=== PATIENT | female | born 1975 | race Caucasian/White ===

== ENCOUNTER 2016-12-19 16:48 | Emergency (ER) | payer MEDICARE, MEDICAID ==
[~2016-12-19] VITALS: Ht 165.1 cm; Wt 83.9 kg
[~2016-12-19 16:48] MED LIST: ADEPEX PO; ALBUTEROL-200 PUFFS/ IH; AMITRIPTYLINE25 MG PO; AUGMENTIN 500 M1 TAB PO; BACTRIM 400 MG-1 TAB PO; BACTRIM DS 8001 TA1 PO; BACTROBAN2% TP; BENTYL10 MG PO; CIPRO 500MG TA500 MG PO; CIPRO500 MG PO; CYMBALTA30 M1 PO; DARVOCET-N 1001 EACH PO; FIORICET 325 MG1 TAB PO; FLEXERIL10 MG PO; FLUID PILL; GABAPENTIN300 M1 PO; KEFLEX 500MG.500 MG PO; LEVAQUIN 750 M750 MG PO; LODINE200 MG PO; LORTAB 5/500 501 TAB PO; LOVASTATIN20 MG PO; MEDROL 4MG. DOSE4 MG PO; MINOCYCLINE 10100 MG PO; MOBIC15 MG PO; MOBIC7.5 MG PO; MOTRIN600 MG PO; NAPROSYN 500MG500 MG PO; NICOTINE PATCH;21 MG TD; NORCO 325 MG-101 TAB PO; NORCO 325 MG-51 TAB PO; PERCOCET 10 MG1 EACH PO; PERCOCET 5/3251 EACH PO; PHENERGAN 12.12.5 M1 PO; PHENERGAN 25MG.25 M1 PO; PROMETHAZINE D473 ML PO; SEPTRA DS 800 M1 TAB PO; SINUS HEADACHE PO; SOMA350 MG PO; STADOL IN; SULFAMETHOXAZOL1 TA6 PO; TESSALON PERLE200 MG PO; VICODIN 5/500 T1 TAB PO; VICODIN 7.5/501 EACH PO; VOLTAREN75 MG PO; XANAX 1MG TABLET1 MG PO; XANAX2 MG PO; ZANAFLEX2 M1 PO; ZITHROMAX 250M250 MG PO; ZOFRAN ODT4 MG PO; [UNRECOGNIZED DRUG - REMARK]
[2016-12-19 17:41] LABS: URINE BILIRUBIN - DIPSTICK NEGATIVE (NEG)
[2016-12-19 17:42] LABS: URINE BLOOD 1+ (NEG)
[2016-12-19] MEDS ORDERED: BACTRIM DS 8001 TA1 PO (17:52)
--- NOTE | 2016-12-19 17:52 | [facility]gent Treatment Center Report ---
History of Present Issue Date/Time Seen by Provider 12/19/16 5851 Visit Reason Pt arrived:Walked Presenting Problem:PT C/O DIZZINESS, DECREASED APPETITE, AND "KNOWS THAT I HAVE A UTI. CHAD HAD ENOUGH OF THEM THAT I KNOW". PT ALSO C/O FLANK PAIN AND PAIN WITH URINATION Location if Accident: Onset of symptoms date/time:/ or onset unknown for:MEDICAL HX UNKNOWN Have you (or family members/close friends) recently traveled outside the [place]? N If Yes, where/when: Have you had exposure to infectious disease within the past month? TB? Other? Specify: Patient states that she has a history of recurrent UTIs states that she has not been feeling well or eating well and having pain and burning with urination, states that she is familar with this pain so she took some levaquin last week that she had left over and it did not help so she came here ALLERGIES Coded Allergies: paroxetine (Severe, S-DIFF. BREATHING 10/24/16) codeine (Intermediate, I-ITCHING 10/24/16) ketorolac (Intermediate, I-HIVES 10/24/16) latex (Intermediate, I-HIVES 10/24/16) phenytoin (Severe, NA-HALLUCINATIONS 10/24/16) Corticosteroids (Glucocorticoids) (Mild, TACHYCARDIA 10/24/16) Home Medications Active Scripts Minocycline Hcl (Minocycline 100MG. Capsule) 100 MG PO BID #14 CAP Prov: 11/07/16 MUPIROCIN 2% (Bactroban Oint) 1 RAYMON TP BID #1 TUBE Prov: 11/07/16 Methylprednisolone (Medrol Dose Isaiah) 4 MG PO UD #1 ISAIAH Prov: 10/31/16 Albuterol (Albuterol-Hfa Inhaler) 1 PUFF IH QIDP PRN DYSPNEA #1 INH Ref 2 Prov: 10/31/16 TIZANIDINE HCL (Zanaflex) 2 MG PO TID PRN spasm #90 CAP Prov: 09/28/15 History Medical History General CAD? No Angina: No MS: No Hypertension? No Hyperlipidemia? Yes CHF? No DVT? No PE? No COPD? No Asthma? No Anemia? No GERD? No Gastric ulcers? No GI Bleed? No Hernia? No Thyroid Problems? No Hypothyroidism? No CVA? No Seizures? Yes Diabetes? No Renal Insuffiency? No UTI? No Stones? No BPH? No GB Disease: No Nephritic Syndrome? No Asplenia? No Hepatitis? No Sickle Cell Disease? No Arthritis? Yes Migraines? No Cataracts? No Glaucoma? No MRSA? No HIV? No TB? No Anxiety? Yes Depression? No Cancer? No More? Yes Additional hx: FIBROMYALGIA Immunization HX DT/Tetanus < 1 Year Ago Flu NEVER Pneumonia NEVER Surgical Hx Previous Surgery?Y C SECTION X TWO JENNIFER KNEE ARTHROSCOPIC X 4 ABD ADHESIONS REMOVED BILATERAL TUBAL LIGATION Hysterect ORAL SURGERY LAPAROSCOPIC Family History Family HX Diabetes Yes CAD Yes Hypertension Yes Hyperlipidemia Yes Cancer Yes TB No Social History Smoking Hx Smoker: Current Every Day Smoker Tobacco: Yes Type Cigarettes Packs/day < 1 Pack Alcohol Alcohol: No Review of Systems All Other Systems Reviewed and Negative Genitourinary frequency, pain, other (urgency, foul odor). Physical Exam Vital Signs Vital Signs Date Time Temp Pulse Resp B/P Pulse O2 O2 Flow FiO2 Ox Delivery Rate 12/19 1721 98.6 102 18 114/73 98 General Appearance normal appearance, no apparent distress Respiratory Status Yes: trachea midline, chest symmetrical, non tender chest. No: respiratory distress. Cardiovascular normal exam, no peripheral edema, no gallop Neurologic alert, normal exam Medical Decision Making LABS/Meds/Orders Pt receiving controlled substance in ED? No Results/Orders Laboratory Tests 12/19/16 172: Urine Color YELLOW, Urine Appearance Clear, Urine pH 6.0, Ur Specific [place] 1.020, Urine Protein 30, Urine Ketones TRACE H, Urine Blood 1+ H, Urine Nitrate POSITIVE H, Urine Bilirubin NEGATIVE, Urine Urobilinogen 0.2, Ur Leukocyte Esterase 1+ H, Urine Glucose NEGATIVE Current Medication Orders Sig/Nichole Start time Last Medication Dose Route Stop Time Status Admin Ceftriaxone Sodium 1 GM ONCE ONE 12/19 1745 DC 12/19 IM 12/19 1746 1749 Ceftriaxone Sodium 0 .STK-MED ONE 12/19 174 DC .ROUTE Lidocaine HCl 0 ONCE ONE 12/19 1745 DC 12/19 IM 12/19 1746 1750 Lidocaine HCl 0 .STK-MED ONE 12/19 1744 DC IJ Orders Procedure Date/time Status [facility] URINE DIPSTICK 12/19 172 Complete Departure Departure Time of Disposition 174 Disposition DC Home or Self Care(routine) Clinical Impression Primary Impression: UTI (urinary tract infection) Qualifiers: Urinary tract infection type: site unspecified Hematuria presence: with hematuria Qualified Code: N39.0 - Urinary tract infection, site not specified Condition STABLE Patient Instructions DI for Urinary Tract Infection (UTI), Urinary Tract Infection Additional Instructions Follow up family doctor Return if needed Discharge Counseling Counseled pt/family regarding diagnosis, test results, medications/RX, home care, follow up needs Prescriptions Current Visit Scripts SULFAMETHOXAZOLE W/TRIMETHOPRI (Bactrim Ds Tab) 1 TABLET PO BID #20 TAB at 2196
[2016-12-19 17:59] VITALS: BP 114/73
== END 2016-12-19 18:00 | disposition home or self-care (01) ==
LOC: UTC 16:48
PROVIDERS: Nurse Practitioner
DX: N39.0 Urinary tract infection, site not specified (principal)